=== PATIENT | male | born 1995 | race Two or more races ===

== ENCOUNTER 2018-10-19 12:24 | Emergency (ER) | payer MEDICAID ==
[~2018-10-19] VITALS: Ht 165.1 cm; Wt 93.0 kg
[~2018-10-19 12:24] MED LIST: NORPTMEDS CO
[2018-10-19 13:55] VITALS: BP 132/88
== END 2018-10-19 14:55 | disposition home or self-care (01) ==
LOC: ER 12:26
DX: J03.90 Acute tonsillitis, unspecified (principal)
CPT/HCPCS: 71046